=== PATIENT | male | born 1995 | race Caucasian/White ===

== ENCOUNTER 2017-06-01 10:06 | Emergency (ER) | payer SELFPAY ==
[~2017-06-01] VITALS: Ht 170.2 cm; Wt 86.6 kg
[2017-06-01 10:11] VITALS: BP 127/73; Ht 170.2 cm; Wt 86.6 kg
[2017-06-01 10:49] LABS: microscopic required? NO
[2017-06-01 10:55] LABS: UA SPECIFIC GRAVITY 1.015 (1.005-1.035); urine erythrocyte NEGATIVE (NEGATIVE)
[2017-06-01 11:06] LABS: AMPHETAMINE QUAL UR POSITIVE (NEG <=1000)
== END 2017-06-01 11:40 | disposition home or self-care (01) ==
LOC: ED 10:06
PROVIDERS: Emergency Medicine
DX: K59.00 Constipation, unspecified (principal); F15.10 Other stimulant abuse, uncomplicated
CPT/HCPCS: J1885; Q0162

== ENCOUNTER 2020-01-12 09:25 | Emergency (ER) | payer OTHER ==
[~2020-01-12] VITALS: Ht 170.2 cm; Wt 95.7 kg
[2020-01-12 09:33] VITALS: Ht 170.2 cm; Wt 95.7 kg
[2020-01-12 10:47] VITALS: BP 135/88
== END 2020-01-12 10:47 | disposition home or self-care (01) ==
LOC: ED 09:25
DX: S05.8X2A Other injuries of left eye and orbit, initial encounter (principal); H10.32 Unspecified acute conjunctivitis, left eye; W22.8XXA Striking against or struck by other objects, initial encounter; Y93.89 Activity, other specified; Y92.89 Other specified places as the place of occurrence of the external cause; Y99.8 Other external cause status